=== PATIENT | female | born 1940 | race Caucasian/White ===

== ENCOUNTER → 2019-12-29 13:09 | Outpatient (BNVA) | payer MEDICARE, SELFPAY | PROVIDERS: PCP Internal Medicine; Visit Provider Hospitalist | DX: J47.9 Bronchiectasis, uncomplicated (principal); J44.9 Chronic obstructive pulmonary disease, unspecified; A31.9 Mycobacterial infection, unspecified; R91.8 Other nonspecific abnormal finding of lung field; I77.819 Aortic ectasia, unspecified site; Z79.899 Other long term (current) drug therapy | CPT/HCPCS: 99214 ==

== ENCOUNTER → 2020-06-21 13:15 | Outpatient (BNVA) | payer MEDICARE, SELFPAY | PROVIDERS: PCP Internal Medicine; Visit Provider Hospitalist | DX: R91.8 Other nonspecific abnormal finding of lung field (principal); A31.9 Mycobacterial infection, unspecified; J41.0 Simple chronic bronchitis; J47.9 Bronchiectasis, uncomplicated; I49.5 Sick sinus syndrome | CPT/HCPCS: 99212 ==

== ENCOUNTER → 2020-12-07 09:14 | Outpatient (BNVA) | payer MEDICARE, SELFPAY | PROVIDERS: PCP Internal Medicine; Visit Provider Hospitalist | DX: R91.8 Other nonspecific abnormal finding of lung field (principal); J41.0 Simple chronic bronchitis; J47.9 Bronchiectasis, uncomplicated; A31.9 Mycobacterial infection, unspecified | CPT/HCPCS: 99212 ==

== ENCOUNTER → 2021-12-15 14:15 | Outpatient (BNVA) | payer MEDICARE, SELFPAY | PROVIDERS: PCP Internal Medicine; Visit Provider Hospitalist | DX: J41.0 Simple chronic bronchitis (principal); J47.9 Bronchiectasis, uncomplicated; R91.8 Other nonspecific abnormal finding of lung field; A31.9 Mycobacterial infection, unspecified | CPT/HCPCS: 94010; 99212 ==

== ENCOUNTER → 2022-01-19 10:05 | Outpatient (BNVA) | payer MEDICARE, SELFPAY | PROVIDERS: PCP Internal Medicine; Visit Provider Hospitalist | DX: J41.0 Simple chronic bronchitis (principal); A31.9 Mycobacterial infection, unspecified; R91.8 Other nonspecific abnormal finding of lung field; J47.9 Bronchiectasis, uncomplicated | CPT/HCPCS: 99212 ==

== ENCOUNTER 2022-11-08 13:51 | Outpatient (AMB) | payer MEDICARE, SELFPAY ==
[2022-11-08 14:06] VITALS: PULSE 58; O2SAT 97
--- NOTE | 2022-11-08 14:06 | A.OFFVIS_ITS ---
Intake Vital Signs 11/08/22 14:06 Height 5 ft 5 in Weight 120 lb BMI 20.0 Pulse 58 Pulse Source Pulse Oximeter Pulse Oximetry (%) 97 Oxygen Delivery Method Room Air Intake Visit Reasons: COPD Disability Hearing Officer Required: No Allergies cephalexin Allergy (Mild, Verified 11/08/22 14:07) Rash meperidine Allergy (Mild, Verified 11/08/22 14:07) Rash moxifloxacin [Avelox] Allergy (Mild, Verified 11/08/22 14:07) Rash pseudoephedrine Allergy (Mild, Verified 11/08/22 14:07) Rash Bee Stings Allergy (Mild, Uncoded 11/08/22 14:07) Hives Betadine Allergy (Mild, Uncoded 11/08/22 14:07) Rash Budesonide-Formoterol Fumarate Allergy (Mild, Uncoded 11/08/22 14:07) Rash Cephalosporins Allergy (Mild, Uncoded 11/08/22 14:07) Rash Nuts Allergy (Mild, Uncoded 11/08/22 14:07) Rash Povidone Iodine Allergy (Mild, Uncoded 11/08/22 14:07) Rash Sulfa Drugs Allergy (Mild, Uncoded 11/08/22 14:07) Rash Tequin Allergy (Mild, Uncoded 11/08/22 14:07) Rash HPI HPI Comments History of Present Illness Details The patient is a 82-year-old woman with a known history of non tuberculosis mycobacteria infection, pulmonary nodules and evidence of bronchiectasis. She also has some degree of obstructive airway disease with wheezing at times. She does complaint of shortness of breath with chest tightness. Appears to get worse with activity. She has noticed that his got worse she came back to the [facility][1]. She does spend time [place]. Her specialists in [place] took her off the Breo and start her on hypertonic saline nebs as well as Acapella valve. in addition to that she did have a recent CT scan of the chest that was personally reviewed by me. Her pulmonary nodules are stable in size. Still has a bronchiectasis primarily in the right middle lobe along with some tree-in-bud and other pulmonary nodules. 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 In the office we also provide her with a peak flow in order for her to assess her airway capacity specially when she is having symptoms to better assess her respiratory capacity at that point. we did review the use of the nebulizer with hypertonic saline in the use of the Acapella valve. She does need to get a nebulizer. 06/21/2020 the patient is here for pulmonary follow-up visit. Since we last spoke the patient was in [place] and while she was there she was noted to have a slow heart rate. 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 She was fully vaccinated I that time. She was set up to have a pacemaker placement. But, she was tested positive for COVID-19 which is thought to be a false positive. The patient's procedure was postpone to June. At that point she decided to leave nima come back to [place]. Now she has an appointment with local brand advisor early next week. She is monitoring her symptoms closely. Heart rate right now is better has very between low 60s to mid 80s. The patient is aware of the she develops any dizziness lightheadedness shortness of breath or any other concerning symptoms she is to go directly to the ER for an evaluation. In the meantime due to her issues she stopped the Breo and also has not been using the Xopenex. Her breathing has been okay. She is also concerned for her resting tremors. The patient's last CT scan was back in November 2019. She did have significant findings of pulmonary nodules and bronchiectasis along with tree-in-bud in. At this point will plan to repeat her CT scan around the same time about a year from her last 1. 12/07/2020 the patient is here for a pulmonary follow-up visit. Overall the patient has been doing very well From a pulmonary standpoint. She does have episodes of shortness of breath and chest tightness. However, she is concerned about using the Xopenex even with the lower risk of adverse effects such as tremors and palpitations. She already has a significant tremor. I will prescribe her Atrovent HFA as a short-acting muscarinic antagonist with hope that she could use it in those cases that she does feel the shortness of breath and chest tightness without the adverse effects. We did review her recent CT scan of the chest that she had at [facility]. It appears that she does have relatively minimal changes to the right middle lobe and lingula consistent with tree-in-bud in in bronchiectasis as a result of the mycobacterial lung disease. At this point the patient does not need to start at the mycobacterial therapy. She does have her CPT with the Acapella valve that she needs to continue using regularly to provide mucus clearance and continue exercising on a regular basis. Her pacemaker seems to be working well, although, set and arm positions the pacemaker is uncomfortable. 12/15/2021 the patient is here for a pulmonary follow-up visit. the patient appears to be more symptomatic. She is complaining of dyspnea on exertion in addition to chest tightness. [id number] severity. She recently underwent a cardiac evaluation. This is on a [facility]. She did undergo a cardiac catheterization demonstrating some degree minimal coronary artery disease. She will follow up closely with her service writer. As far as her imaging studies of pulmonary nodules have been stable back in 11/2020. more recently in October she did undergo a cardiac CT scan demonstrating when the treating budding bronchiectatic changes pulmonary nodules. Although she understands that this is very limited CT scan of the lungs due to the fact that we do not have that all the lung cuts. On examination she does have prolonged expiratory phase and does have some end expiratory wheezing. On her spirometry the patient does have limited expiratory flows. Patient is very sensitive to beta agonist therefore will hold off on using albuterol. However, patient would benefit from inhaled cortical steroid and also potentially starting a long-acting muscarinic antagonist. I have reassured her that these inhalers will not result in any tremulousness or any palpitations. 01/19/2022 the patient is here for a pulmonary follow-up visit. Overall the patient is doing relatively well. Her shortness of breath has improved some. Still has some shortness of breath with activity. Mild in severity. She is using the Flovent. She is tolerating it well. I did review the use of the spacer so she can minimize upper airway irritation. We also reviewed her last CT scan of the chest does done back in October 2022. demonstrating the pulmonary nodules. She also had a CT scan of the heart in October 2021 demonstrating partial views of the lungs with still persistent bronchiectatic changes and pulm onary nodules. At this point her nodules have not changed and more than 2 years. Thereforer, no additional serial CT scans are warranted. We will reassess in 1 year. Her other issue is her pacemaker continues to migrate down to her armpit area. Now she has a hard time swinging the golf club when she is playing golf. Seems to be rubbing pectoralis tendon and also nearby structures. I am concerned that this constant rubbing and irritation can result in problems in the future. She needs to have this further evaluated. [facility] Medical History (Updated 11/12/22 @ 20:47 by Fili Dover MD) Aortic ectasia Bronchiectasis COPD (chronic obstructive pulmonary disease) Mycobacterial disease Pacemaker displacement Pulmonary nodules Tachy-audrey syndrome Family History (Updated 12/29/19 @ 20:20 by Fili Dover MD) Son No problems noted. Other Mycobacterial disease Social History (Updated 12/07/20 @ 09:35 by Lamar Lucero Cathleen) Patient Tobacco Use Status: Never used Tobacco Review of Systems Const Denies night sweats ENT Denies change in voice, Denies lip swelling, Denies mouth pain, Reports nasal congestion, Reports nasal discharge and Denies tongue swelling Card Denies chest pain, Denies chest pain with activity, Denies syncope, Denies lightheadedness, Denies dyspnea and Reports dyspnea on exertion Resp Reports cough, Denies hemoptysis, Denies dyspnea, Reports dyspnea on exertion and Denies wheezing GI Denies abdominal pain Musc Denies no additional complaints Neuro Denies Neuro-related abnormal movements and Denies syncope Psych Denies no additional complaints Pj/Lymph Denies easy bleeding and Denies lymphadenopathy Aller/Immun Denies lip swelling, Denies tongue swelling and Denies wheezing Physical Exam Vital Signs: Last Vital Signs Pulse 58 11/08/22 14:06 Pulse Ox 97 11/08/22 14:06 Oxygen Delivery Method Room Air 11/08/22 14:06 BMI result Body Mass Index 20.0 Const General: alert Eyes Pupils: Equal, round and reactive pupils present Neck Neck: Yes normal visual inspection, Yes full ROM and Yes no lymphadenopathy Chest Chest palpation & inspection: Pacemaker present (now moved further into her axilla) Resp Auscultation: no wheezes and diminished lung sounds Cardio Rate: regular rate Rhythm: abnormal rhythm Heart sounds: S1 normal heart sound present and S2 normal heart sound present GI Palpation (GI): Soft to palpation and nontender Auscultation: normal bowel sounds Skin General skin exam: rashes and/or lesions noted Neuro Cranial nerves: Yes Equal, round and reactive pupils present Assessment & Plan Assessment & Plan (1) Pulmonary nodules: Code(s): R91.8 - Other nonspecific abnormal finding of lung field (2) Mycobacterial disease: Code(s): A31.9 - Mycobacterial infection, unspecified (3) COPD (chronic obstructive pulmonary disease): Comment: The patient likely has developed some obstructive airway disease from her underlying bronchiectasis. Her peak flow was only 300 at the time of the visit Code(s): J44.9 - Chronic obstructive pulmonary disease, unspecified Qualifiers: COPD type: chronic bronchitis Chronic bronchitis type: simple Qualified Code(s): J41.0 - Simple chronic bronchitis (4) Bronchiectasis: Code(s): J47.9 - Bronchiectasis, uncomplicated Qualifiers: Bronchiectasis type: uncomplicated Qualified Code(s): J47.9 - Bronchiectasis, uncomplicated (5) Pacemaker displacement: Code(s): T82.128A - Displacement of other cardiac electronic device, initial encounter Plan continue nebulizer with hypertonic saline followed by acapella valve for CPT continue Flovent HFA Consider LAMA PRIYA as needed for worsening for wheezing or chest tightness No further CT chest, we will reassess the need next year or any any new or worsening symptoms arise PM seems to be rubbing on the pectoralis tendon and soft tissue structures, needs to have it re-ealuated F/U 1 yr Coding Level of Care Code Est Pt Level 4 (13969) Diagnoses Pulmonary nodules R91.8 Mycobacterial disease A31.9 COPD (chronic obstructive pulmonary disease) J41.0 COPD type: chronic bronchitis Chronic bronchitis type: simple Bronchiectasis J47.9 Bronchiectasis type: uncomplicated Pacemaker displacement T82.128A Time Spent (min) 19
== END 2022-11-08 14:31 | disposition home or self-care (01) ==
PROVIDERS: PCP Internal Medicine; Visit Provider Hospitalist
DX: R91.8 Other nonspecific abnormal finding of lung field (principal); A31.9 Mycobacterial infection, unspecified; J41.0 Simple chronic bronchitis; J47.9 Bronchiectasis, uncomplicated; T82.128A Displacement of other cardiac electronic device, initial encounter
CPT/HCPCS: 99214

== ENCOUNTER → 2022-11-08 13:51 | Outpatient (BNVA) | payer MEDICARE, SELFPAY | PROVIDERS: PCP Internal Medicine; Visit Provider Hospitalist | DX: J41.0 Simple chronic bronchitis (principal); A31.9 Mycobacterial infection, unspecified; J47.9 Bronchiectasis, uncomplicated; R91.8 Other nonspecific abnormal finding of lung field; T82.128A Displacement of other cardiac electronic device, initial encounter | CPT/HCPCS: 99212 ==

== ENCOUNTER 2023-07-04 14:26 | Outpatient (AMB) | payer MEDICARE, SELFPAY ==
--- NOTE | 2023-07-04 14:30 | A.OFFVIS_ITS ---
Vital Signs 07/04/23 14:32 Height 5 ft 5 in Weight 115 lb BMI 19.1 Pulse 60 Pulse Source Pulse Oximeter Pulse Oximetry (%) 96 Oxygen Delivery Method Room Air Intake Visit Reasons: COPD Sales And Service Consultant Required: No Allergies cephalexin Allergy (Mild, Verified 07/04/23 14:34) Rash meperidine Allergy (Mild, Verified 07/04/23 14:34) Rash moxifloxacin [Avelox] Allergy (Mild, Verified 07/04/23 14:34) Rash pseudoephedrine Allergy (Mild, Verified 07/04/23 14:34) Rash Bee Stings Allergy (Mild, Uncoded 07/04/23 14:34) Hives Betadine Allergy (Mild, Uncoded 07/04/23 14:34) Rash Budesonide-Formoterol Fumarate Allergy (Mild, Uncoded 07/04/23 14:34) Rash Cephalosporins Allergy (Mild, Uncoded 07/04/23 14:34) Rash Nuts Allergy (Mild, Uncoded 07/04/23 14:34) Rash Povidone Iodine Allergy (Mild, Uncoded 07/04/23 14:34) Rash Sulfa Drugs Allergy (Mild, Uncoded 07/04/23 14:34) Rash Tequin Allergy (Mild, Uncoded 07/04/23 14:34) Rash HPI Comments Details: The patient is a 83-year-old woman with a known history of non tuberculosis mycobacteria infection, pulmonary nodules and evidence of bronchiectasis. She also has some degree of obstructive airway disease with wheezing at times. She does complaint of shortness of breath with chest tightness. Appears to get worse with activity. She has noticed that his got worse she came back to the [facility]. She does spend time [place]. Her specialists in [place] took her off the Breo and start her on hypertonic saline nebs as well as Acapella valve. in addition to that she did have a recent CT scan of the chest that was personally reviewed by me. Her pulmonary nodules are stable in size. Still has a bronchiectasis primarily in the right middle lobe along with some tree-in-bud and other pulmonary nodules. 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 In the office we also provide her with a peak flow in order for her to assess her airway capacity specially when she is having symptoms to better assess her respiratory capacity at that point. we did review the use of the nebulizer with hypertonic saline in the use of the Acapella valve. She does need to get a nebulizer. 06/21/2020 the patient is here for pulmonary follow-up visit. Since we last spoke the patient was in [place] and while she was there she was noted to have a slow heart rate. 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 She was fully vaccinated I that time. She was set up to have a pacemaker placement. But, she was tested positive for COVID-19 which is thought to be a false positive. The patient's procedure was postpone to June. At that point she decided to leave nima come back to [place]. Now she has an appointment with local acid treater early next week. She is monitoring her symptoms closely. Heart rate right now is better has very between low 60s to mid 80s. The patient is aware of the she develops any dizziness lightheadedness shortness of breath or any other concerning symptoms she is to go directly to the ER for an evaluation. In the meantime due to her issues she stopped the Breo and also has not been using the Xopenex. Her breathing has been okay. She is also concerned for her resting tremors. The patient's last CT scan was back in November 2019. She did have significant findings of pulmonary nodules and bronchiectasis along with tree-in-bud in. At this point will plan to repeat her CT scan around the same time about a year from her last 1. 12/07/2020 the patient is here for a pulmonary follow-up visit. Overall the patient has been doing very well From a pulmonary standpoint. She does have episodes of shortness of breath and chest tightness. However, she is concerned about using the Xopenex even with the lower risk of adverse effects such as tremors and palpitations. She already has a significant tremor. I will prescribe her Atrovent HFA as a short-acting muscarinic antagonist with hope that she could use it in those cases that she does feel the shortness of breath and chest tightness without the adverse effects. We did review her recent CT scan of the chest that she had at [facility]. It appears that she does have relatively minimal changes to the right middle lobe and lingula consistent with tree-in-bud in in bronchiectasis as a result of the mycobacterial lung disease. At this point the patient does not need to start at the mycobacterial therapy. She does have her CPT with the Acapella valve that she needs to continue using regularly to provide mucus clearance and continue exercising on a regular basis. Her pacemaker seems to be working well, although, set and arm positions the pacemaker is uncomfortable. 12/15/2021 the patient is here for a pulmonary follow-up visit. the patient appears to be more symptomatic. She is complaining of dyspnea on exertion in addition to chest tightness. [id number] severity. She recently underwent a cardiac evaluation. This is on a [facility]. She did undergo a cardiac catheterization demonstrating some degree minimal coronary artery disease. She will follow up closely with her medical management trainer. As far as her imaging studies of pulmonary nodules have been stable back in 11/2020. more recently in October she did undergo a cardiac CT scan demonstrating when the treating budding bronchiectatic changes pulmonary nodules. Although she understands that this is very limited CT scan of the lungs due to the fact that we do not have that all the lung cuts. On examination she does have prolonged expiratory phase and does have some end expiratory wheezing. On her spirometry the patient does have limited expiratory flows. Patient is very sensitive to beta agonist therefore will hold off on using albuterol. However, patient would benefit from inhaled cortical steroid and also potentially starting a long-acting muscarinic antagonist. I have reassured her that these inhalers will not result in any tremulousness or any palpitations. 01/19/2022 the patient is here for a pulmonary follow-up visit. Overall the patient is doing relatively well. Her shortness of breath has improved some. S till has some shortness of breath with activity. Mild in severity. She is using the Flovent. She is tolerating it well. I did review the use of the spacer so she can minimize upper airway irritation. We also reviewed her last CT scan of the chest does done back in October 2022. demonstrating the pulmonary nodules. She also had a CT scan of the heart in October 2021 demonstrating partial views of the lungs with still persistent bronchiectatic changes and pulmonary nodules. At this point her nodules have not changed and more than 2 years. Thereforer, no additional serial CT scans are warranted. We will reassess in 1 year. Her other issue is her pacemaker continues to migrate down to her armpit area. Now she has a hard time swinging the golf club when she is playing golf. Seems to be rubbing pectoralis tendon and also nearby structures. I am concerned that this constant rubbing and irritation can result in problems in the future. She needs to have this further evaluated. 07/04/2023 the patient is here for a pulmonary follow-up visit. Overall she is doing well. Still complains of dyspnea on exertion. Specially when going swimming. She did undergo pulmonary function studies while she was in [place]. I did review them with her. It appears that she does have a mild obstruction. She has not been using the hypertonic saline as much anymore because she has not too congested. Sometimes she does bring up some yellow phlegm. But is not as much. In addition to that the patient still has an issue with her pacemaker. Still displaced into her left shoulder. She will be setting up a visit with a new medical management trainer in the talk about the further. Her last CT scan in 2021 demonstrated chronic changes as that were stable from an years. Therefore no additional CT scans warranted. Will have her get a chest x-ray at this time however. In regards of the obstructive airway disease the patient may benefit from a short-acting bronchodilator. Will provide her with Atrovent since she can not tolerate albuterol. [facility] Medical History (Updated 11/12/22 @ 20:47 by Fili Dover MD) Pacemaker displacement Tachy-audrey syndrome Aortic ectasia Pulmonary nodules Mycobacterial disease COPD (chronic obstructive pulmonary disease) Bronchiectasis Family History (Updated 12/29/19 @ 20:20 by Fili Dover MD) Son No problems noted. Other Mycobacterial disease Social History (Updated 12/07/20 @ 09:35 by Lamar Lucero [facility]) Patient Tobacco Use Status: Never used Tobacco Review of Systems Const Denies night sweats ENT Denies change in voice, Denies lip swelling, Denies mouth pain, Reports nasal congestion, Reports nasal discharge and Denies tongue swelling Card Denies chest pain, Denies chest pain with activity, Denies syncope, Denies lightheadedness, Denies dyspnea and Reports dyspnea on exertion Resp Reports cough, Denies hemoptysis, Denies dyspnea, Reports dyspnea on exertion and Denies wheezing GI Denies abdominal pain Musc Denies no additional complaints Neuro Denies Neuro-related abnormal movements and Denies syncope Psych Denies no additional complaints Pj/Lymph Denies easy bleeding and Denies lymphadenopathy Aller/Immun Denies lip swelling, Denies tongue swelling and Denies wheezing Physical Exam Vital Signs: Last Vital Signs Pulse 60 07/04/23 14:32 Pulse Ox 96 07/04/23 14:32 Oxygen Delivery Method Room Air 07/04/23 14:32 BMI result Body Mass Index 19.1 Const General: alert Eyes Pupils: Equal, round and reactive pupils present Neck Neck: Yes normal visual inspection, Yes full ROM and Yes no lymphadenopathy Chest Chest palpation & inspection: Pacemaker present (now moved further into her ax illa) Resp Effort & Inspection: prolonged expiratory phase Auscultation: no wheezes and diminished lung sounds Cardio Rate: regular rate Rhythm: abnormal rhythm Heart sounds: S1 normal heart sound present and S2 normal heart sound present GI Palpation (GI): Soft to palpation and nontender Auscultation: normal bowel sounds Skin General skin exam: rashes and/or lesions noted Neuro Cranial nerves: Yes Equal, round and reactive pupils present Assessment & Plan Assessment & Plan (1) Pulmonary nodules: Code(s): R91.8 - Other nonspecific abnormal finding of lung field Category: Medical (2) Mycobacterial disease: Code(s): A31.9 - Mycobacterial infection, unspecified Category: Medical (3) COPD (chronic obstructive pulmonary disease): Comment: The patient likely has developed some obstructive airway disease from her underlying bronchiectasis. Her peak flow was only 300 at the time of the visit Code(s): J44.9 - Chronic obstructive pulmonary disease, unspecified Category: Medical Qualifiers: COPD type: chronic bronchitis Chronic bronchitis type: simple Qualified Code(s): J41.0 - Simple chronic bronchitis (4) Bronchiectasis: Code(s): J47.9 - Bronchiectasis, uncomplicated Category: Medical Qualifiers: Bronchiectasis type: uncomplicated Qualified Code(s): J47.9 - Bronchiectasis, uncomplicated Plan continue nebulizer with hypertonic saline followed by acapella valve for CPT stopped Flovent HFA start PRIYA as needed CXR F/U 1 year Orders: Orders XR chest 2V Today J47.9 - Bronchiectasis, uncomplicated Medications: New ipratropium bromide 17 mcg/actuation (Atrovent HFA) 2 puffs inhalation Q8H 12.9 grams 6RF 30 days Coding Level of Care Code Est Pt Level 4 (12153) Diagnoses Pulmonary nodules R91.8 Mycobacterial disease A31.9 Simple chronic bronchitis J41.0 COPD type: chronic bronchitis Chronic bronchitis type: simple Bronchiectasis without complication J47.9 Bronchiectasis type: uncomplicated Time Spent (min) 18
[2023-07-04 14:32] VITALS: PULSE 60; O2SAT 96; BMI 19.1
== END 2023-07-04 14:49 | disposition home or self-care (01) ==
PROVIDERS: PCP Internal Medicine; Visit Provider Hospitalist
DX: R91.8 Other nonspecific abnormal finding of lung field (principal); A31.9 Mycobacterial infection, unspecified; J41.0 Simple chronic bronchitis; J47.9 Bronchiectasis, uncomplicated
CPT/HCPCS: 99214

== ENCOUNTER → 2023-07-04 14:26 | Outpatient (BNVA) | payer MEDICARE, SELFPAY | PROVIDERS: PCP Internal Medicine; Visit Provider Hospitalist | DX: R91.8 Other nonspecific abnormal finding of lung field (principal); J41.0 Simple chronic bronchitis; J47.9 Bronchiectasis, uncomplicated; A31.9 Mycobacterial infection, unspecified | CPT/HCPCS: 99212 ==

== ENCOUNTER 2024-07-09 09:37 | Outpatient (AMB) | payer MEDICARE, SELFPAY ==
[2024-07-09 09:43] VITALS: BP 110/56; PULSE 64; O2SAT 100; BMI 19.6
--- NOTE | 2024-07-09 09:43 | A.OFFVIS_ITS ---
Vital Signs 07/09/24 09:43 Height 5 ft 5 in Weight 117 lb 15.157 oz BMI 19.6 BP 110/56 L Blood Pressure Location Lt brachial Position Sitting Pulse 64 Pulse Source Pulse Oximeter Pulse Oximetry (%) 100 Oxygen Delivery Method Room Air Intake Visit Reasons: COPD Implementation Manager Required: No Accompanied by: Self / Same As Patient Allergies cephalexin Allergy (Mild, Verified 07/09/24 09:46) Rash meperidine Allergy (Mild, Verified 07/09/24 09:46) Rash moxifloxacin [Avelox] Allergy (Mild, Verified 07/09/24 09:46) Rash pseudoephedrine Allergy (Mild, Verified 07/09/24 09:46) Rash Bee Stings Allergy (Mild, Uncoded 07/04/23 14:34) Hives Betadine Allergy (Mild, Uncoded 07/04/23 14:34) Rash Budesonide-Formoterol Fumarate Allergy (Mild, Uncoded 07/04/23 14:34) Rash Cephalosporins Allergy (Mild, Uncoded 07/04/23 14:34) Rash Nuts Allergy (Mild, Uncoded 07/04/23 14:34) Rash Povidone Iodine Allergy (Mild, Uncoded 07/04/23 14:34) Rash Sulfa Drugs Allergy (Mild, Uncoded 07/04/23 14:34) Rash Tequin Allergy (Mild, Uncoded 07/04/23 14:34) Rash HPI Comments Details: The patient is a 84-year-old woman with a known history of non tuberculosis mycobacteria infection, pulmonary nodules and evidence of bronchiectasis. She also has some degree of obstructive airway disease with wheezing at times. She does complaint of shortness of breath with chest tightness. Appears to get worse with activity. She has noticed that his got worse she came back to the [facility]. She does spend time [place]. Her specialists in [place] took her off the Breo and start her on hypertonic saline nebs as well as Acapella valve. in addition to that she did have a recent CT scan of the chest that was personally reviewed by me. Her pulmonary nodules are stable in size. Still has a bronchiectasis primarily in the right middle lobe along with some tree-in-bud and other pulmonary nodules. 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 In the office we also provide her with a peak flow in order for her to assess her airway capacity specially when she is having symptoms to better assess her respiratory capacity at that point. we did review the use of the nebulizer with hypertonic saline in the use of the Acapella valve. She does need to get a nebulizer. 06/21/2020 the patient is here for pulmonary follow-up visit. Since we last spoke the patient was in [place] and while she was there she was noted to have a slow heart rate. 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 She was fully vaccinated I that time. She was set up to have a pacemaker placement. But, she was tested positive for COVID-19 which is thought to be a false positive. The patient's procedure was postpone to June. At that point she decided to leave n[place] come back to [place]. Now she has an appointment with local sales representative publications early next week. She is monitoring her symptoms closely. Heart rate right now is better has very between low 60s to mid 80s. The patient is aware of the she develops any dizziness lightheadedness shortness of breath or any other concerning symptoms she is to go directly to the ER for an evaluation. In the meantime due to her issues she stopped the Breo and also has not been using the Xopenex. Her breathing has been okay. She is also concerned for her resting tremors. The patient's last CT scan was back in November 2019. She did have significant findings of pulmonary nodules and bronchiectasis along with tree-in-bud in. At this point will plan to repeat her CT scan around the same time about a year from her last 1. 12/07/2020 the patient is here for a pulmonary follow-up visit. Overall the patient has been doing very well From a pulmonary standpoint. She does have episodes of shortness of breath and chest tightness. However, she is concerned about using the Xopenex even with the lower risk of adverse effects such as tremors and palpitations. She already has a significant tremor. I will prescribe her Atrovent HFA as a short-acting muscarinic antagonist with hope that she could use it in those cases that she does feel the shortness of breath and chest tightness without the adverse effects. We did review her recent CT scan of the chest that she had at [facility]. It appears that she does have relatively minimal changes to the right middle lobe and lingula consistent with tree-in-bud in in bronchiectasis as a result of the mycobacterial lung disease. At this point the patient does not need to start at the mycobacterial therapy. She does have her CPT with the Acapella valve that she needs to continue using regularly to provide mucus clearance and continue exercising on a regular basis. Her pacemaker seems to be working well, although, set and arm positions the pacemaker is uncomfortable. 12/15/2021 the patient is here for a pulmonary follow-up visit. the patient appears to be more symptomatic. She is complaining of dyspnea on exertion in addition to chest tightness. [id number] severity. She recently underwent a cardiac evaluation. This is on a [facility]. She did undergo a cardiac catheterization demonstrating some degree minimal coronary artery disease. She will follow up closely with her strategic buyer. As far as her imaging studies of pulmonary nodules have been stable back in 11/2020. more recently in October she did undergo a cardiac CT scan demonstrating when the treating budding bronchiectatic changes pulmonary nodules. Although she understands that this is very limited CT scan of the lungs due to the fact that we do not have that all the lung cuts. On examination she does have prolonged expiratory phase and does have some end expiratory wheezing. On her spirometry the patient does have limited expiratory flows. Patient is very sensitive to beta agonist therefore will hold off on using albuterol. However, patient would benefit from inhaled cortical steroid and also potentially starting a long-acting muscarinic antagonist. I have reassured her that these inhalers will not result in any tremulousness or any palpitations. 01/19/2022 the patient is here for a pulmonary follow-up visit. Overall the patient is doing relatively well. Her shortness of breath has improved some. Still has some shortness of breath with activity. Mild in severity. She is using the Flovent. She is tolerating it well. I did review the use of the spacer so she can minimize upper airway irritation. We also reviewed her last CT scan of the chest does done back in October 2022. demonstrating the pulmonary nodules. She also had a CT scan of the heart in October 2021 demonstrating partial views of the lungs with still persistent bronchiectatic changes and pulmonary nodules. At this point her nodules have not changed and more than 2 years. Thereforer, no additional serial CT scans are warranted. We will reassess in 1 year. Her other issue is her pacemaker continues to migrate down to her armpit area. Now she has a hard time swinging the golf club when she is playing golf. Seems to be rubbing pectoralis tendon and also nearby structures. I am concerned that this constant rubbing and irritation can result in problems in the future. She needs to have this further evaluated. 07/04/2023 the patient is here for a pulmonary follow-up visit. Overall she is doing well. Still complains of dyspnea on exertion. Specially when going swimming. She did undergo pulmonary function studies while she was in [place]. I did review them with her. It appears that she does have a mild obstruction. She has not been using the hypertonic saline as much anymore because she has not too congested. Sometimes she does bring up some yellow phlegm. But is not as much. In addition to that the patient still has an issue with her pacemaker. Still displaced into her left shoulder. She will be setting up a visit with a new strategic buyer in the talk about the further. Her last CT scan in 2021 demonstrated chronic changes as that were stable from an years. Therefore no additional CT scans warranted. Will have her get a chest x-ray at this time however. In regards of the obstructive airway disease the patient may benefit from a short-acting bronchodilator. Will provide her with Atrovent since she can not tolerate albuterol. 07/09/2024 the patient is here for pulmonary follow-up visit. Overall the patient is feeling a lot better. [place] she was sick with COVID-19. Her became ill and delirious and he was briefly admitted to the hospital. After that she was sick. She had high fevers up to 102 and had significant tachycardia along with. She did not take any antiviral therapy. She was concerned about the side effects of Paxlovid. Explained to her the Paxlovid difficult to take specially when people take blood thinners. But she is a good candidate for Mulnopivir. Sometimes she should consider in the future. Although hopefully she does not go through this again. The patient did have a have a CT scan of the chest back in September 2023 demonstrating numerous pulmonary nodules but some new or 1-2 mm pulmonary nodules were noted primarily in right middle lobe. She also has this ground-glass nodular density in the right lower lobe with slight solid component that has been being monitored. This 1 the appears to be different from the others and I do believe requires further attention. She will have another CAT scan done September of this year. She will continue with current respiratory therapy. The patient will follow-up in a year's time. If she develops any issues prior to this she will call for an earlier assessment. [facility] Medical History (Updated 11/12/22 @ 20:47 by Fili Dover MD) Pacemaker displacement Tachy-audrey syndrome Aortic ectasia Pulmonary nodules Mycobacterial disease COPD (chronic obstructive pulmonary disease) Bronchiectasis Family History (Updated 12/29/19 @ 20:20 by Fili Dover MD) Son No problems noted. Other Mycobacterial disease Social History Patient Tobacco Use Status: Never used Tobacco Review of Systems Const Denies chills, Denies fatigue, Denies fever(s), Denies weight gain and Denies weight loss ENT Denies dizziness, Denies lip swelling and Denies tongue swelling Card Denies chest pain, Denies leg edema, Denies lightheadedness, Denies palpitations, Denies dyspnea on exertion, Denies orthopnea and Denies other Resp Reports cough, Denies dyspnea on exertion and Denies wheezing GI Denies hematochezia and Denies change in stool character Musc Denies abnormal gait, Denies muscle weakness, Denies numbness, Denies radiating pain into limb and Denies tingling Neuro Denies abnormal gait, Denies dizziness, Denies numbness and Denies tingling Psych Denies no additional complaints Endo Denies fatigue and Denies palpitations Pj/Lymph Denies easy bleeding and Denies lymphadenopathy Aller/Immun Denies lip swelling, Denies tongue swelling and Denies wheezing Physical Exam Vital Signs: Last Vital Signs Pulse 64 07/09/24 09:43 BP 110/56 L 07/09/24 09:43 Pulse Ox 100 07/09/24 09:43 Oxygen Delivery Method Room Air 07/09/24 09:43 BMI result Body Mass Index 19.6 Const General: alert Eyes Pupils: Equal, round and reactive pupils present Neck Neck: Yes normal visual inspection, Yes full ROM and Yes no lymphadenopathy Chest Chest palpation & inspection: Pacemaker present (now moved further into her axilla) Resp Auscultation: no wheezes and diminished lung sounds Cardio Rate: regular rate Rhythm: abnormal rhythm Heart sounds: S1 normal heart sound present and S2 normal heart sound present GI Palpation (GI): Soft to palpation and nontender Auscultation: normal bowel sounds Skin General skin exam: rashes and/or lesions noted Neuro Cranial nerves: Yes Equal, round and reactive pupils present Assessment & Plan Assessment & Plan (1) Pulmonary nodules: Code(s): R91.8 - Other nonspecific abnormal finding of lung field Category: Medical (2) Mycobacterial disease: Code(s): A31.9 - Mycobacterial infection, unspecified Category: Medical (3) COPD (chronic obstructive pulmonary disease): Comment: The patient likely has developed some obstructive airway disease from her underlying bronchiectasis. Her peak flow was only 300 at the time of the visit Code(s): J44.9 - Chronic obstructive pulmonary disease, unspecified Category: Medical Qualifiers: COPD type: chronic bronchitis Chronic bronchitis type: simple Qualified Code(s): J41.0 - Simple chronic bronchitis (4) Bronchiectasis: Code(s): J47.9 - Bronchiectasis, uncomplicated Category: Medical Qualifiers: Bronchiectasis type: uncomplicated Qualified Code(s): J47.9 - Bro nchiectasis, uncomplicated Plan continue nebulizer with hypertonic saline followed by acapella valve for CPT PRIYA as needed CT chest 10/2024 at [facility] [place] F/U 1 year Orders: Orders CT chest wo IV con 3 Months R91.8 - Other nonspecific abnormal finding of lung field Coding Level of Care Code Est Pt Level 4 (69503) Complex EM visit Add On G2211 Diagnoses Pulmonary nodules R91.8 Mycobacterial disease A31.9 Simple chronic bronchitis J41.0 COPD type: chronic bronchitis Chronic bronchitis type: simple Bronchiectasis without complication J47.9 Bronchiectasis type: uncomplicated Time Spent (min) 18
--- OUTSIDE RECORDS SUMMARY | 2024-07-09 10:35 | XMS_ITS | Clinical Summary ---
Author Organization [facility] Address [address] [place] [address] Care Team Providers Care Raw Material Planner Name Role Phone Giovanny Rodriguez MD Primary Care Provider [phone] Allergies Active Allergy Reactions Criticality Noted Date Comments Cephalexin Rash/Dermatitis Low 06/08/2013 Cephalosporins Rash/Dermatitis Medium 06/08/2013 Seen by outpatient allergy Dr. Juanjo Leal 09/10/16 and passed oral amoxicillin test. Therefore, 3rd and 4th gen cephalosporin may be OK (records scanned). Levofloxacin Rash/Dermatitis Medium 06/08/2013 Povidone Iodine Rash/Dermatitis High 06/08/2013 Sulfa Antibiotics Rash/Dermatitis Low 06/20/2016 Medications atorvastatin (LIPITOR) 10 MG tablet Take 1 tablet (10 mg total) by mouth. Active apixaban (ELIQUIS) 5 MG tablet Take 1 tablet (5 mg total) by mouth 2 (two) times a day. Active Calcium-Vitamin s C & D (CALCIUM/C/D PO) Take by mouth. Active gabapentin (NEURONTIN) 100 MG capsuleIndicati ons:Essential tremor,Restless leg syndrome Take 1 capsule (100 mg total) by mouth 2 (two) times a day. 180 capsule 1 07/31/2022 Active Active Problems Problem Noted Date Diagnosed Date Acute bronchitis 07/31/2022 07/31/2022 Changing skin lesion 07/31/2022 07/31/2022 Unspecified severe protein-calorie malnutrition 07/31/2022 Atrial fibrillation 12/12/2021 07/31/2022 Overview (07/31/2022): Last Assessment & Plan: She is not on any rate control medications. She will continue anticoagulation with Eliquis 5 mg twice daily for CVA prophylaxis. Risks and benefits of anticoagulation therapy have been reviewed. She verbalized understand agrees to continue. S/P cardiac cath 12/08/2021 07/31/2022 Overview (07/31/2022): [place] [facility] with MARYLOU - indications: Abn Stress Echo Shortness of breath on exertion 08/23/2021 07/31/2022 Overview (07/31/2022): Last Assessment & Plan: False-positive stress echocardiogram. Dyspnea is likely pulmonary in etiology. Cardiac catheterization as above showing mild nonobstructive disease. No further work-up at this time. Sick sinus syndrome 09/08/2020 07/31/2022 Overview (07/31/2022): Last Assessment & Plan: Status post [employer] permanent pacemaker. Last device check is from August 2021 revealing she is atrial paced 12% the time and ventricular paced 2% of the time with a presenting rhythm of atrial sensed and ventricular sensed in the 50s. Estimated battery longevity is 8.5 years since she had few episodes of SVT. We will continue to monitor. She is not on beta-teresa therapy anymore. Bronchiectasis 07/11/2017 07/31/2022 Hyperlipidemia 07/11/2017 07/31/2022 Overview (07/31/2022): Last Assessment & Plan: Last lipid panel from August 2021. Total cholesterol 177, HDL 87, LDL 81. She was previously on atorvastatin and stopped this secondary to alopecia. She does not want a resume at this time. Multiple allergies 07/11/2017 07/31/2022 Overview (07/31/2022): Has seen Superintendent [employer] Mitral valve prolapse 01/06/2017 07/31/2022 Overview (07/31/2022): Last Assessment & Plan: Stable on most recent echo. Unlikely to be the cause of her symptoms. Following with pulmonary. 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 Family History Medical History Relation Name Comments Cancer Father Cancer Mother Relation Name Status Comments Father Mother Social History Tobacco Use Types Packs/Day Years Used Date Smoking Tobacco: Never Smokeless Tobacco: Never Tobacco Cessation:Counseling Given: Not Answered Alcohol Use Standard Drinks/Week Comments Yes 0 (1 standard drink = 0.6 oz pur e alcohol) Comments Unknown Sex and Gender Information Value Date Recorded Sex Assigned at Not on file Legal Sex Female 1:01 PM EDT Gender Identity Not on file Sexual Orientation Not on file Last Filed Vital Signs Vital Sign Reading Time Taken Comments Blood Pressure - - Pulse 96 01/26/2020 11:14 AM EST Temperature - - Respiratory Rate 16 12/25/2019 2:26 PM EDT Oxygen Saturation 98% 01/26/2020 11:14 AM EST Inhaled Oxygen Concentration - - Weight 54.4 kg (120 lb) 07/31/2022 3:34 PM EDT Height 165.1 cm (5' 5 ) 07/31/2022 3:34 PM EDT Body Mass Index 19.97 07/31/2022 3:34 PM EDT Plan of Treatment Health Maintenance Due Date Last Done Comments DTaP/Tdap/Td Vaccines (1 - Tdap) 1961 Pneumococcal Vaccines 50+ (1 of 2 - PCV) 1961 Zoster (Shingles) Vaccine (1 of 2) 1992 DXA Bone Density (Females,Ages 65 and older) 06/06/2007 RSV Vaccine 60 years and older and Patients (1 - 1-dose 75+ series) 2017 COVID-19 Vaccine (2023-2 5 season) 2023 Influenza Vaccine 10/09/2024 12/16/2015, 12/14/2014, 01/26/2014 Hepatitis B Vaccines Aged Out No long er eligible based on patient's age to complete this topic Insurance MEDICARE PART A & B [facility] MEDICARE PART A & B Care Teams Raw Material Planner Relationship Specialty Start Date End Date Giovanny Rodriguez MD [address] [place] [id number] PCP - General Internal Medicine 01/01/18
--- OUTSIDE RECORDS SUMMARY | 2024-07-09 10:35 | XMS_ITS | Data Portability ---
Author Organization [place] - [facility] Address [address] [facility] [address] [place] [address] Care Team Providers Care Life Enrichment Specialist Name Role Phone KANDACE WHEELER Primary Care Provider [phone] YEMI TAI Referring Provider LAURA BASHIR Primary Care Provider Assessment Encounter Date Assessment Date Assessment LastModified by Organization Details LastModified Time 03/26/2023 03/26/2023 Patient medications evaluated and reviewed. Based on history and physical exam, I do not recommend changes at this time. Discussed new orders/changes with patient. [email or web address] Not available 03/26/2023 16:18:35 05/14/2023 05/14/2023 Patient medications evaluated and reviewed. Based on history and physical exam, I do not recommend changes at this time. Discussed new orders/changes with patient. [email or web address] Not available 05/14/2023 09:15:18 Plan of Treatment Reminders Order Date Submit Date Provider Last Modified By Organization Details Last Modified Time Details Appointments None recorded. Lab None recorded. Referral None recorded. Procedures None recorded. Surgeries None recorded. Imaging None recorded. Medication Orders albuterol sulfate HFA 90 mcg/actuati on aerosol inhaler 2024 025 [facility] #[id number], [address] [place], [address], 10:12:12 Hyper-John 7 % solution for nebulizatio n 2023 024 [id number], [place], [address], 4 09:21:14 Hyper-John 7 % solution for nebulizatio n 2023 024 [id number], [place], [address], 4 20:48:00 Patient TargetsNo targets recorded. Patient Instructions Encounter Date Encounter Id Patient Instructions Last Modified By Organization Details Last Modified Time 04/14/2024 [id number] complete PFT w/ post bronchodilator spirometry* [email or web address] Not available 04/14/2024 10:14:16 Reason for Referral None Reported. Results Created Date Observation Date Name Description Value Unit Range Abnormal Flag Note LastModifiedBy Organization Detail LastModifiedTime 04/26/19 24 04/25/2023 PFT, compl ete No observ ation record ed. [email or web address] Not Available 2023 20:43:46 01/29/20 24 03/24/2019 CT, chest , w/o contr ast No observ ation record ed. cloutfi Not Available 2024 10:04:58 01/29/20 24 03/27/2022 CT, chest , w/o contr ast No observ ation record ed. cloutfi Not Available 2024 10:04:20 01/29/20 24 03/27/2022 rhyth m EKG, 1-3 leads No observ ation record ed. cloutfi Not Available 2024 09:56:02 01/29/20 24 03/31/2020 CT, chest , w/o contr ast No observ ation record ed. cloutfi Not Available 2024 10:04:44 04/14/19 25 09/30/2023 CT, chest , w/o contr ast No observ ation record ed. cloutfi Not Available 2024 10:54:08 Result Notes None recorded. 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 Problem Code: E78.00; Problem Code Type: ICD10; Santos Farrahutfi, MD [address], [place], [address], [facility] - [facility] 5 09:53:20 Paroxysma l atrial fibrillat ion 563735637 Active 2020 Problem Code: I48.0; Problem Code Type: ICD10; Santos Mcleod MD [address], [place], [address], [facility] - [facility] 5 09:53:20 Acute exacerbat ion of bronchiec tasis 053729340 Completed 201904/14/2024 Problem Code: J47.1; Problem Code Type: ICD10; Santos Mcleod MD [address], [place], [address], [facility] - [facility] 5 09:52:45 Bronchiec tasis 73439229 Active 2020 Problem Code: J47.9; Problem Code Type: ICD10; Santos Mcleod MD [address], [place], [address], [facility] - [facility] 4 16:19:21 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 Procedures Surgical History Date Name Laterality Status Provider Name and Address Organization Details Recorded Time 04/25/19 Pulmonary Function Test completed Benita Henriquez [place] - [facility] 04/25/2023 14:33:07 tonsillectomy completed Not Available [facility] 02/12/2023 15:25:05 nephroplasty completed Not Available [facility] 02/12/2023 15:25:16 laparotomy completed Not Available [facility] 02/12/2023 15:25:23 Imaging Results Imaging Date Name Status LastModified by Organiz ation Details LastModified Time 04/25/2023 PFT, complete completed Information not available 04/30/2023 20:43:46 03/24/2019 CT, chest, w/o contrast completed Information not available 04/14/2024 10:04:58 03/27/2022 CT, chest, w/o contrast completed Information not available 04/14/2024 10:04:20 03/27/2022 rhythm EKG, 1-3 leads completed Information not available 04/14/2024 09:56:02 03/31/2020 CT, chest, w/o contrast completed Information not available 04/14/2024 10:04:44 09/30/2023 CT, chest, w/o contrast completed Information not available 04/14/2024 10:54:08 Procedure Notes None recorded. Medical Equipment None Reported. Allergies Allergen ID Allergen Name Allergen Category Reaction Reaction Severity Criticality Documentation Date Start Date Code Code System Note Provider Name and Address Organization Details Recorded Time 71218 Substance with sulfonami de structure and antibacte rial mechanism of action (substanc e) medicatio n rash Not available Not available 02/12/20232019 91461 8003 SNOMED Not Available [facility] 3 12:51:20 76288 Keflex medicatio n other Not available Not available 02/12/20232019 23781 7 RxNorm lips swell Not Available [facility] 3 12:51:32 83720 peanut allergeni c extract food,medi cation anaphylax is Not available Not available 02/12/20232019 27010 8 RxNorm nuts Not Available [facility] 3 12:51:34 Medications Name Sig Start Date Stop Date Status Note LastModified by Organization Details LastModified Time atorvastati n 10 mg tablet TAKE 1 TABLET ONCE DAILY active Not Available Not Available No t Available lorazepam 0.5 mg tablet TAKE 1 TO 2 TABLETS AT BEDTIME active Not Available Not Available No t Available fluorometho lone 0.1 % eye drops,suspe nsion INSTILL 1 DROP IN BOTH EYES TWICE DAILY FOR 6 WEEKS active Not Available Not Available No t Available gabapentin 100 mg capsule TAKE 1 CAPSULE BY MOUTH TWICE A DAY 03/26 completed Not Available Not Available Not Available albuterol sulfate HFA 90 mcg/actuati on aerosol inhaler Inhale 2 puffs every 4 hours by inhalatio n route as needed for 30 days, for SOB. active Not Available Not Available No t Available nitrofurant oin monohydrate /macrocryst als 100 mg capsule TAKE 1 CAPSULE BY MOUTH TWICE A DAY FOR 7 DAYS 04/14 completed Not Available Not Available Not Available Atrovent HFA 17 mcg/actuati on aerosol inhaler 2 PUFF INHALED EVERY 8 HOURS FOR 30 DAYS 04/14 completed Not Available Not Available Not Available Xopenex HFA 45 mcg/actuati on aerosol inhaler Xopenex HFA 45 mcg/actua tion aerosol inhaler Take 2 Puff(s) Inhalatio n QID PRN; D/C Reason: Discontin ued 03/15 completed Not Available Not Available Not Available Hyper-John 7 % solution for nebulizatio n Inhale 4 mL twice a day by inhalatio n route for 30 days. 2023 active Not Available Not Available Not Avai lable Eliquis 5 mg tablet TAKE 1 TABLET BY MOUTH TWICE A DAY 04/14 completed Not Available Not Available Not Available Eliquis 2.5 mg tablet TAKE 1 TABLET BY MOUTH TWICE A DAY active Not Available Not Available No t Available Breo Ellipta 100 mcg-25 mcg/dose powder for inhalation Breo Ellipta 100 mcg-25 mcg/dose powder for inhalatio n; D/C Reason: Discontin ued 05/09 completed Not Available Not Available Not Available Readi-Cat 2 2 % (w/v) oral suspension PLEASE SEE ATTACHED FOR DETAILED DIRECTION S active Not Available Not Available No t Available BinaxNOW COVID-19 Ag Self Test kit USE DIRECTED 05/13 completed Not Available Not Available Not Available Vitals Date Recorded Body height Body mass index (BMI) Body weight Body temperature Respiratory rate Oxygen saturation Oxygen saturation in Arterial blood by Pulse oximetry Heart rate Systolic blood pressure Diastolic blood pressure Provider Name and Address Organization Details Last Updated DateTime 4 167.64 cm 19.4 kg/m2 31197.0 8 g 97.1 [degF] 12 /min 98 % 98 % 71 /min 120 mm[Hg] 68 mm[Hg] Camila Rahman [place] - [facility] 4 16:06:16 Date Recorded Body height Body mass index (BMI) Body weight Respiratory rate Body temperature Oxygen saturation Oxygen saturation in Arterial blood by Pulse oximetry Heart rate Systolic blood pressure Diastolic blood pressure Provider Name and Address Organization Details Last Updated DateTime 4 167.64 cm 19 kg/m2 48091.9 g 14 /min 97.7 [degF] 97 % 97 % 52 /min 112 mm[Hg] 70 mm[Hg] Luisa Tirado [place] - [facility] 4 08:57:23 Date Recorded Body height Respiratory rate Body temperature Oxygen saturation Oxygen saturation in Arterial blood by Pulse oximetry Heart rate Body mass index (BMI) Body weight Systolic blood pressure Diastolic blood pressure Provider Name and Address Organization Details Last Updated DateTime 5 167.64 cm 12 /min 96 [degF] 98 % 98 % 78 /min 19 kg/m2 30921.9 g 120 mm[Hg] 68 mm[Hg] Camila Rahman [place] - [facility] 5 09:53:26 Social History Question Answer Notes LastModified by Organizat ion Details LastModified Time Tobacco Smoking Status Never Smoker Not Available [facility] 02/13/2023 07:14:00 Do You Have An Advance Directive? No Information not available 04/14/2024 What Is Your Level Of Alcohol Consumption? Occasional [email or web address] Information not available 02/13/2023 How Many Years Have You Consumed Alcohol? 10 [email or web address] Information not available 02/13/2023 Are You Currently Employed? No [employer] Information not available 02/13/2023 What Was The Date Of Your Most Recent Tobacco Screening? 04/14/2024 Information not available 04/14/2024 What Is Your Relationship Status? Information not available 02/13/2023 Do You Use Any Illicit Or Recreational Drugs? No Information not available 02/13/2023 Sex: Unknown Functional Status None recorded. Mental Status None recorded. Family History Nothing Reported Notes:*Procedure Description : lung cancer*Relative: Mother Medical History No medical history recorded. Gynecological HistoryNo gynecological history recorded. Obstetrics History GPAL:G 0 P 0 0 0 0 Immunizations Vaccine Type Date Status Note Provider Nam e and Address Organization Details Recorded Time COVID-19, mRNA, LNP-S, PF, 50 mcg/0.5 mL dose 2 completed Luisa Candida null, [place] - [facility] 05/14/2023 08:54:47 COVID-19, mRNA, LNP-S, PF, 50 mcg/0.5 mL dose 1 completed Luisa Candida null, [place] - [facility] 05/14/2023 08:54:47 COVID-19, mRNA, LNP-S, PF, 50 mcg/0.5 mL dose 1 completed Luisa Candida null, [place] - [facility] 05/14/2023 08:54:47 COVID-19, mRNA, LNP-S, PF, 50 mcg/0.5 mL dose 1 completed Luisa Candida null, [place] - [facility] 05/14/2023 08:54:47 COVID-19, mRNA, LNP-S, PF, 50 mcg/0.5 mL dose 2 completed Luisa Candida null, [place] - [facility] 05/14/2023 08:54:47 Influenza, split virus, trivalent, preservative 2 completed Santos Mcleod MD [address] [place] [address] [address], [address], [place] - [facility] 03/26/2023 16:24:52 pneumococcal polysaccharide PPV23 0 [place] [address] [place] [address] [address], [address], [place] - [facility] 03/26/2023 16:24:52 Influenza, split virus, trivalent, preservative 9 [place] [address] [place] [address] [address], [place], [address], [place] - [facility] 03/26/2023 16:24:52 COVID-19, mRNA, LNP-S, PF, 100 mcg/0.5mL dose or 50 mcg/0.25mL dose 1 completed Luisa matta[place] - [facility] 05/14/2023 08:54:47 COVID-19, mRNA, LNP-S, PF, 100 mcg/0.5mL dose or 50 mcg/0.25mL dose 1 completed Luisa matta, [place] - [facility] 05/14/2023 08:54:47 COVID-19, mRNA, LNP-S, PF, 30 mcg/0.3 mL dose, ayo-sucrose 2 completed Luisa matta[place] - [facility] 05/14/2023 08:54:47 pneumococcal polysaccharide PPV23 8 completed Luisa matta[place] - [facility] 05/14/2023 08:54:47 Past Encounters Encounter ID Performer Location Encounter Start Date Encounter Closed Date Diagnosis/Indication Diagnosis SNOMED-CT Code Diagnosis ICD10 Code Diagnosis Note [id number] Santos Mcleod MD [facility] [address] [place] [address] 03/26/2023 15:52:04 03/26/2023 16:34:03 Acquired bronchiectasis 039679905 J47.9 - Plan: Continue administra tion of albuterol with saline as needed for shortness of breath. Increase hypertonic saline use to daily to enhance airway clearance. Prescribe a flutter valve to aid in mucus clearance. Schedule a pulmonary function test (PFT) to evaluate lung function and assess the need for additional inhalers. Atypical mycobacterial infection 013685516 A31.9 Plan: Monitor the patient for any symptom changes or exacerbati on of the condition. Ensure vaccinatio ns are current, including COVID-19 and influenza immunizati ons.Recent CT scan as the patient has been stable. [id number] Santos Mcleod MD [facility] [address] [place] [address] 04/25/2023 13:58:45 04/25/2023 15:25:07 Dyspnea 175538414 R06.02 [id number] Santos Mcleod MD [facility] [address] [place] [address] 05/14/2023 08:49:59 05/14/2023 09:20:49 Acquired bronchiectasis 208365219 J47.9 - Plan: Continue administra tion of albuterol with saline as needed for shortness of breath. Increase hypertonic saline use to daily to enhance airway clearance. Prescribe a flutter valve to aid in mucus clearance . PFTs are stable and with only mild evidence of airway obstructio n. In fact her FEV1 is above 105% predicted. Atypical mycobacterial infection 579352792 A31.9 Plan: Monitor the patient for any symptom changes or exacerbati on of the condition. Ensure vaccinatio ns are current, including COVID-19 and influenza immunizati ons. Recent CT scan as the patient has been stable. [id number] Santos Mcleod MD [facility] [address] [place] [address] 04/14/2024 09:37:50 04/14/2024 10:24:46 Bronchiectasis 07656738 J47.9 Bronchiect asis with Mild Obstructio n: - Patient has a history of bronchiect asis with mild obstructio n. Recent CAT scan pending results. Patient reports increased shortness of breath (SOB), especially during swimming. Family history includes mother with chronic bronchitis and lung cancer. No history of cystic fibrosis or fertility issues. - Plan: a. Prescribe albuterol inhaler: use 20 minutes before swimming or as needed for SOB. b. Alternate annual breathing tests and CAT scans. c. Review CAT scan results when available. d. Schedule PFT for next year Immunization advised 310 802601 Z71.9 Patient reports all recommende d vaccines received, including RSV and flu. RSV vaccine reduces hospitaliz ations by 90%, effective for 2 years.- Plan:a. Review and update immunizati on records at next visit.b. Ensure patient remains up-to-date on all recommende d vaccines Health Concerns Section Related Observation LastModified by Organization Krupa rdz LastModified Time None Recorded Concern Status LastModified by Organization Details LastModified Time None Recorded Advance Directives Directive N: Payers Encounter Date Sequence Insurance Name Policy Number Policy Carty Covered Member ID Carty Member ID Guarantor Name 03/26/2023 2 [place] [id number] Constance Lopez [id number] 03/26/2023 1 [place] Constance Lopez [id number] 04/25/2023 2 [place] [id number] Cosntance Lopez [id number] 04/25/2023 1 [place] Constance Lopez [id number] 05/14/2023 2 [place] [id number] Constance Lopez [id number] 05/14/2023 1 [place] Constance Lopez [id number] 04/14/2024 2 [place] [id number] Constance Lopez [id number] 04/14/2024 1 [place] Constance Lopez [id number] Notes Date Note Type Note Provider Name and Address Organization Details Recorded Time 03/26/2023 text/html 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 Her current weight is stable at 120 pounds, showing no variation from the previous year's measurementsShe utilizes albuterol with saline as needed for episodes of difficulty breathing and finds expectorating yellow phlegm beneficial in alleviating respiratory distress. She has not been prescribed Flovent and instead manages her condition with hypertonic saline during breathing challenges, although she is uncertain of the concentration used.A recent CAT scan indicated no significant changes when compared to the prior year's results. The patient has not been subjected to a breathing test.Despite being physically active and engaging in regular swimming, she reports an increase in shortness of breath while performing the crawl stroke, a deviation from her past experiences. Santos Mcleod MD [address] [facility] [address], [place], [address], [facility] - [facility] 03/26/2023 20:48:17 04/14/2024 text/html Chief Complaint: The patient reports experiencing increased dyspnea, particularly noticeable during swimming activities, with a greater difficulty noted during the crawl stroke compared to the breaststroke. Medical History: Bronchiectasis: Noted with mild obstruction on previous pulmonary function tests (PFTs). Lung Nodules: History of lung nodules identified on imaging. Family History: Mother had lung cancer. Denies any family history of cystic fibrosis, fertility issues, or sinus problems. Gynecological History: Reports a past miscarriage and a recent emergency department visit for vaginal bleeding, with a subsequent gynecological evaluation yielding a normal biopsy. Current Medications and Supplements: Eliquis 2.5 mg Albuterol inhaler (as needed) Social History: The patient engages in regular swimming activities in a private pool. Review of Systems: Respiratory: The patient describes an increase in dyspnea, especially noticeable when swimming. There is an inconsistent use of hypertonic saline treatments, attributed to time constraints. Cardiovascular: Notes a recent episode of vaginal bleeding. Additional Notes: Recent diagnostic evaluations include a computed tomography (CT) scan details of which are not available. There is a noted history of bronchiectasis with mild obstruction observed in previous PFTs and a familial history of lung cancer. The patient denies any history of cystic fibrosis, fertility issues, or sinus problems within the family, but reports a past miscarriage and a recent hospitalization for vaginal bleeding. Santos Mcleod MD [address] [facility] [address], [place], [address], [facility] - [facility] 04/14/2024 10:46:32 OBGyn Episode No OBEpisode recorded.
--- OUTSIDE RECORDS SUMMARY | 2024-07-09 10:35 | XMS_ITS | Clinical Summary ---
Author Organization [address] [place] [address] Address [address] [place] [address] Phone Care Team Providers Care Social Welfare Research Worker Name Role Phone Unavailable Primary Care Provider Unavailabl e Allergies Active Allergy Reactions Criticality Noted Date Comments Bee Venom Protein (Honey Bee) 2016 Bee Stings Budesonide-Formoterol 06/20/2016 Budesonide-formoterol Fumarate Dihydrate Cephalexin 06/20/2016 Cephalosporins 06/20/2016 Gatifloxacin 06/20/2016 Tequin Meperidine 06/20/2016 Metoprolol 06/27/2020 Per pulm doctor, Dr. Dover Moxifloxacin 06/20/2016 Avelox Nut - Unspecified 06/20/2016 Nuts Povidone-Iodine 06/20/2016 Pseudoephedrine 06/20/2016 Sulfa (Sulfonamide Antibiotics) 06/20/2016 Sulfa Drugs Medications apixaban (ELIQUIS) 5 mg tablet Take 1 Tablet by mouth 2 times daily. Active atorvastatin (LIPITOR) 10 mg tablet Take 1 Tablet by mouth daily. Active calcium carbonate/vitam in D3 (CALCIUM + D ORAL) Calcium Carb-Choleca lciferol (CALCIUM 1000 + D OR) Take 1 Tablet by mouth daily. Active DEXAMETHASONE OPHT apply to the eye. Active LORazepam (ATIVAN) 0.5 mg tablet Take 1 Tablet by mouth at bedtime as needed. Active magnesium hydroxide (MILK OF MAGNESIA ORAL) 2 tbs at bedtime Active tobramycin/dexa methasone (TOBRADEX OPHT) apply to the eye. Active Active Problems Problem Noted Date Diagnosed Date Palpitations 11/26/2023 Overview (02/27/2024): Last Assessment & Plan: Patient does report occasional palpitations. She did recently have a device check on 10/13/2023. This revealed 3 very brief runs of PAT. Will continue to monitor. Pericardial effusion 11/26/2023 Overview (02/27/2024): Last Assessment & Plan: Patient got CT scanning of her chest through her pulmonary provider which she brought into the office. Does she state small pericardial effusion. Will reassess this with echocardiogram. Atrial fibrillation ([facility] V24, [facility] V28) 1 Overview (02/27/2024): Last Assessment & Plan: Patient history of paroxysmal A-fib. Patient in normal sinus rhythm at today's visit. She will remain on Eliquis. Denies any issues with bleeding. No recent falls. Shortness of breath on exertion 08/23/2021 Overview (02/27/2024): Last Assessment & Plan: Patient has been experiencing dyspnea on exertion over the past 4 to 6 weeks. She reports that this is most pronounced when she is exercising or helping her in the morning get dressed where she has to bend over and help him put on his shoes. 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 Does not have dizziness or lightheadedness. No clear cut angina, heart failure or arrhythmias. Patient is scheduled for echocardiogram next year, will push to have this completed sooner. Sick sinus syndrome ([facility]/HCC V24, [facility] V28) 0 09/08/2020 Overview (02/27/2024): Last Assessment & Plan: Continue routine device interrogation. As before if the site of the pacemaker is bothersome for the patient as per Dr. Egan it could be attempted to be relocated although this may not be successful. At this point the patient is not interested in pursuing this. Bronchiectasis ([facility] V24, [facility] V28) 2017 Hyperlipidemia 07/11/2017 Overview (02/27/2024): Last Assessment & Plan: Last lipid panel from August 2021. Total cholesterol 177, HDL 87, LDL 81. She was previously on atorvastatin and stopped this secondary to alopecia. She does not want a resume at this time. Mitral valve prolapse 01/06/2017 Overview (02/27/2024): Last Assessment & Plan: Blood pressure goal less than 130/80. Continue periodic echocardiogram. We can plan on repeat echocardiogram in 2024. 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 ([facility] V24, [facility] V28) 12/28/2016 Pulmonary nodule 12/28/2016 Asthma 11/09/2016 Osteopenia 06/20/2016 Encounters Date Type Department Care Team Description 06/12/2024 4:00 PM EDT Ancillary Procedure [facility] [address] [place] [address] 06/08/2024 Telephone [facility] [address] [place] [address] Brant Rajan MD Transfer of Care Form 05/26/2024 9:10 AM EDT Ancillary Procedure [facility] - [address] [place] [address] 05/26/2024 Telephone [facility] [address] [place] [address] Provider, Not In System Medical Records 05/26/2024 Telephone [facility] - [address] [place] [address] Genia Ray PA 05/12/2024 8:30 AM EST Ancillary Procedure [facility] - [address] [place] [address] 05/06/2024 Telephone [facility] [address] [place] [address] Brant Rajan MD Pacemaker from Last 3 Months Medical History Medical History Date Comments Hyperlipidemia 07/11/2017 DX:Hyperlipidemi a Bronchiectasis ([facility] V24, [facility] V28) 07/11/2017 DX:Bronchiectasis (HCC) Multiple allergies 07/11/2017 DX:Multiple a llergies; COMMENT: Has seen Reactor Technician Asthma 11/09/2016 DX:Asthma History of pneumonia 06/20/2016 DX:History of pneumonia 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 ([facility] V24, [facility] V28) 12/28/2016 DX: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 ([facility]) Mitral valve prolapse 01/06/2017 DX:Mitral valve prolapse Osteopenia 06/20/2016 DX:Osteopenia Pulmonary nodule 12/28/2016 DX:Pulmonary no dule Family History Medical History Relation Name Comments Coronary artery disease Father Relation Name Status Comments Father Social History Tobacco Use Types Packs/Day Years Used Date Smoking Tobacco: Never Smokeless Tobacco: Never Alcohol Use Standard Drinks/Week Comments Yes 0 (1 standard drink = 0.6 oz pur e alcohol) Comments Unknown Sex and Gender Information Value Date Recorded Sex Assigned at Female 01/09/2024 11:53 AM EDT Legal Sex Female 1:47 PM EST Gender Identity Female 01/09/2024 11:53 AM EDT Sexual Orientation Straight 01/09/2024 11 :53 AM EDT Obstetrics History Last Filed Vital Signs Vital Sign Reading Time Taken Comments Blood Pressure 110/60 12/12/2023 3:52 PM EDT Sit ting L Arm Pulse 51 11/26/2023 9:41 AM EDT Temperature - - Respiratory Rate - - Oxygen Saturation - - Inhaled Oxygen Concentration - - Weight 54.9 kg (121 lb) 12/12/2023 3:52 PM EDT Height 165.1 cm (5' 5 ) 12/12/2023 3:52 PM EDT Body Mass Index 20.14 12/12/2023 3:52 PM EDT Plan of Treatment Upcoming Encounters Date Type Department Care Team (Late st Contact Info) Description 08/24/2024 9:00 AM EDT Ancillary Procedure [facility] - [address] [address] [place] [address] 09/08/2024 8:20 AM EDT Office Visit [facility] [address] [facility] [address] [place] [address] Chacho Dai MD [address] [facility] [address] [place] [address] Health Maintenance Due Date Last Done Comments DTaP,Tdap,and Td Vaccines (1 - Tdap) 1959 Cholesterol Screening (Lipid Panel) 02/17/2022 Depression Screening 02/17/2022 Falls Risk Assessment 02/17/2022 Medicare Annual Wellness Visit 02/17/2022 Osteoporosis Screening (Bone Density Screening) 02/17/2022 Social Influencers of Health Screening 02/17/2022 Hypertension/CHF/CAD Annual BMP Blood Test 01/22/2024 08/04/2022 COVID-19 Vaccine ( season) 2024 11/14/2023, 12/04/2022, 07/16/2022, Additional history exists Zoster Vaccines Completed 11/15/2017, 07/24/2017 RSV Immunization Adult Patients Completed 01/18/2023 Pneumococcal Vaccine: 50+ Years Completed 09/16/2023, 01/18/2022, 05/17/2017 Influenza Vaccine Completed 12/03/2023, , 12/14/2021, Additional history exists HIB Vaccines Aged Out No longer eligi ble based on patient's age to complete this topic HPV Vaccines Aged Out No longer eligi ble based on patient's age to complete this topic Hepatitis A Vaccines Aged Out No long er eligible based on patient's age to complete this topic Hepatitis B Vaccines Aged Out No long er eligible based on patient's age to complete this topic IPV Vaccines Aged Out No longer eligi ble based on patient's age to complete this topic MMR Vaccines Aged Out No longer eligi ble based on patient's age to complete this topic Meningococcal ACWY Vaccine Aged Out N o longer eligible based on patient's age to complete this topic Meningococcal B Vaccine Aged Out No l onger eligible based on patient's age to complete this topic RSV Immunization Patients Under 20 months Aged Out No longer eligible based on patient's age to complete this topic Varicella Vaccines Aged Out No longer eligible based on patient's age to complete this topic Medical Devices Implanted Type Area Director Of Online Education Device Identifier Shelf Expiration Date Model / Serial / Lot Bsci-[id number] Implanted:08/2020 (Quantity not on file) Cardiac Pacemaker [employer] MGMT [id number] / [id number] / Procedures Procedure Name Priority Date/Time Associated Diagnosis Comments CARDIAC DEVICE CHECK- REMOTE- MURJ Routine 06/12/2024 3:56 PM EDT CARDIAC DEVICE CHECK- REMOTE- MURJ Routine 05/26/2024 9:06 AM EDT CARDIAC DEVICE CHECK- REMOTE- MURJ Routine 05/12/2024 8:29 AM EST ANNUAL BMP BLOOD TEST Routine 08/04/2022 from Last 3 Months or Most Recently Relevant to Health Maintenance Results * Cardiac device check - Remote- MURJ (06/12/2024 3:56 PM EDT) Only the most recent of3 resultswithin the time period is included. Date Time Interrogation Session [id number] CV DEVICE CHECK Type Interrogation Session Remote Device Initiated CV DEVICE CHECK Implantable Pulse Generator Director Of Online Education BSX CV DEVICE CHECK Implantable Pulse Generator Type IPG CV DEVICE CHECK Implantable Pulse Generator Model L111 CV DEVICE CHECK Implantable Pulse Generator Serial Number [id number] CV DEVICE CHECK Implantable Pulse Generator Implant Date 20200714 CV DEVICE CHECK Battery Remaining Percentage 100.00 CV DEVICE CHECK Battery Remaining Longevity 66.0 CV DEVICE CHECK Battery Status Beginning of Service CV DEVICE CHECK Ramsey Statistic RA Percent Paced 22.00 CV DEVICE CHECK Ramsey Statistic RV Percent Paced 1.00 CV DEVICE CHECK Atrial Tachy Statistic AT/AF [place] Percent 1.00 CV DEVICE CHECK Lead Channel Sensing Intrinsic Amplitude 3.100 CV DEVICE CHECK Lead Channel Setting Sensing Sensitivity 0.25 CV DEVICE CHECK Lead Channel Impedance Value 640 CV DEVICE CHECK Lead Channel RA Pacing Threshold Date 2023-12-27 CV DEVICE CHECK Lead Channel Setting Pacing Amplitude 2.000 CV DEVICE CHECK Lead Channel Setting Pacing Pulse Width 0.4 CV DEVICE CHECK Lead Channel Sensing Intrinsic Amplitude 11.700 CV DEVICE CHECK Lead Channel Setting Sensing Sensitivity 0.60 CV DEVICE CHECK Lead Channel Impedance Value 753 CV DEVICE CHECK Lead Channel RV Pacing Threshold Date 2023-12-27 CV DEVICE CHECK Lead Channel Setting Pacing Amplitude 2.000 CV DEVICE CHECK Lead Channel Setting Pacing Pulse Width 0.4 CV DEVICE CHECK Ramsey Setting Mode (NBG Code) DDD CV DEVICE CHECK Ramsey Setting Lower Rate Limit 50 CV DEVICE CHECK Ramsey Setting AT Mode Switch Rate 170 CV DEVICE CHECK Ramsey Setting Maximum Tracking Rate 130 CV DEVICE CHECK Ramsey Setting Maximum Sensor Rate 140 CV DEVICE CHECK Ramsey Setting PAV Delay 180 CV DEVICE CHECK Ramsey Setting VICTOR M Delay 150 CV DEVICE CHECK Zone Setting Type Category VT CV DEVICE CHECK Rate 160 CV DEVICE CHECK Zone Setting Status Monitor CV DEVICE CHECK Zone ID 1 CV DEVICE CHECK Date of Service 2024-01-12 CV DEVICE CHECK Anatomical Region Laterality Modality Device Interroga tion 12/28/2023 12:5 1 AM EDT Impressions 01/03/2024 8:12 AM EDT Normal Remote: No Events * Normal Device Function * Alerts or events: None * Battery: Battery is at 100%, 5.50 yrs * Sensing, impedance and thresholds reviewed * Programmed parameters reviewed * Presenting rhythm reviewed * Heart Rate Histograms reviewed * No significant changes noted Narrative Procedure Note Ramone Egan MD - 06/12/2024 IMPRESSION: Normal Remote: No Events * Normal Device Function * Alerts or events: None * Battery: Battery is at 100%, 5.50 yrs * Sensing, impedance and thresholds reviewed * Programmed parameters reviewed * Presenting rhythm reviewed * Heart Rate Histograms reviewed * No significant changes noted Ramone Egan MD CV IMPLANTABLE CARDIAC DEVICE PROCEDURES Final Result * Annual BMP Blood Test (08/04/2022) Annual BMP Blood Test abstracted Historical Provider HEALTH MAINTENANCE Final Result from Last 3 Months or Most Recently Relevant to Health Maintenance Insurance [facility]ICARE [facility]
--- OUTSIDE RECORDS SUMMARY | 2024-07-09 10:35 | XMS_ITS ---
Author Name [facility] Organization Unknown History of Medication Use Medication Directions Dispensed Refills Start Date End Date Stat us gabapentin (NEURONTIN) 100 MG capsule Take 1 capsule (100 mg total) by mouth 2 (two) times a day. 07/31/2022 active Calcium-Vitamins C & D (CALCIUM/C/D PO) Take by mouth. 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 2016-12-28 ProblemAct [facility] Sick sinus syndrome active 2020-09-08 ProblemAct [facility] Pulmonary nodule active 2016-12-28 ProblemAct [facility] 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 ProblemAct [facility] Hyperlipidemia active 2017-07-[address] Atrial fibrillation active 2021-12-12 ProblemAct [facility] Changing skin lesion active 2022-07-31 ProblemAct [facility] S/P cardiac cath active 2021-12-08 ProblemAct [facility] Bronchiectasis active 2017-07-[address] Multiple allergies active 2017-07-11 ProblemAct [facility] Encounters Encounter Type Encounter Reason Primary Diagnosis Location Date Ambulatory [facility] 08/30/2023 Ambulatory [facility] 08/30/2023 Ambulatory [facility] 08/30/2023 Ambulatory [facility] 08/30/2023 Ambulatory Essential tremor [facility] 07/31/2022 Care Team Organization Name Specialty Phone Email Start Date End Da te [facility] KELSY CHATMAN Primary Care 10/16/2022 10/17/19 [facility] KELSY CHATMAN Primary Care 07/31/2022
== END 2024-07-09 10:16 | disposition home or self-care (01) ==
LOC: HO.HPS 09:37
PROVIDERS: PCP Internal Medicine; Visit Provider Hospitalist
DX: R91.8 Other nonspecific abnormal finding of lung field (principal); A31.9 Mycobacterial infection, unspecified; J41.0 Simple chronic bronchitis; J47.9 Bronchiectasis, uncomplicated
CPT/HCPCS: 99214; G2211

== ENCOUNTER → 2024-07-09 09:37 | Outpatient (BNVA) | payer MEDICARE, SELFPAY | PROVIDERS: PCP Internal Medicine; Visit Provider Hospitalist | DX: J41.0 Simple chronic bronchitis (principal); J47.9 Bronchiectasis, uncomplicated; R91.8 Other nonspecific abnormal finding of lung field; A31.9 Mycobacterial infection, unspecified | CPT/HCPCS: 99212 ==